=== PATIENT | female | born 1970 | race Caucasian/White ===

== ENCOUNTER → 2020-07-18 15:31 | Outpatient (CLI) | payer BC, SELFPAY ==
--- NOTE | ~2020-07-18 | US_ITS ---
EXAMINATION: US venous doppler LE EXAM DATE: 07/18/2020 16:32 INDICATION: Bilateral lower extremity edema. Left leg bruising, spasm. TECHNIQUE: Multiple grayscale, color flow and Doppler images of the lower extremity deep venous syste ms bilaterally were obtained and reviewed. There is no prior study for comparison. FINDINGS: Scanning at the left medial lower leg symptomatic region demonstrated no abnormality within the subcutaneous fat or musculature. Right side: The right common femoral, femoral and profunda veins demonstrate normal color flow, respi ratory variation, augmentation and compressibility. Compressibility, color flow confirmed within the right popliteal, posterior tibial, peroneal, and greater saphenous veins. Left side: The left common femoral, femoral and profunda veins demonstrate normal color flow, respira tory variation, augmentation and compressibility. Compressibility, color flow confirmed within the l eft popliteal, posterior tibial, peroneal, and greater saphenous veins. IMPRESSION: 1. No lower extremity deep venous thrombosis bilaterally. Reviewed, dictated and finalized at location A. [employer]
== END ==
PROVIDERS: PCP Chiropractor; Visit Provider Chiropractor
DX: R60.9 Edema, unspecified (principal)
CPT/HCPCS: 93970

== ENCOUNTER → 2021-12-06 14:43 | Outpatient (CLI) | payer BC, SELFPAY ==
--- NOTE | ~2021-12-06 | XR_ITS ---
EXAMINATION: XR toe 1st RT min 2V DATE: 12/06/2021 15:06 INDICATION: Right great toe pain TECHNIQUE: Dorsal plantar, lateral and 2 oblique views of the right great toe were obtained. COMPARISON: None FINDINGS: Bone alignment is normal. No fracture. Mild to moderate osteoarthritis at the first metatarsophalange al joint. Mild osteoarthritis at the tarsal metatarsal and second distal and third proximal interphal angeal joints. Moderate-sized plantar calcaneal spur. Soft tissues are unremarkable. IMPRESSION: Polyarticular osteoarthritis, mild to moderate the first metatarsophalangeal joint and mild at a few tarsometatarsal and interphalangeal joints. Reviewed, dictated and finalized at location B. IMPRESSION: Polyarticular osteoarthritis, mild to moderate the first metatarsophalangeal abel int and mild at a few tarsometatarsal and interphalangeal joints.
== END ==
PROVIDERS: PCP Family Medicine; Visit Provider Family Medicine
DX: M79.674 Pain in right toe(s) (principal); M19.071 Primary osteoarthritis, right ankle and foot
CPT/HCPCS: 73660

== ENCOUNTER 2021-12-27 01:03 | Day surgery (SDC) | payer BC, SELFPAY ==
[2021-11-21 10:14] VITALS: BMI 45.3
--- NOTE | 2021-11-25 10:32 | SUR.PREOP ---
Patient called and told me that she did not take her colon prep the way the instructions are written. Spoke with Dr Tsai about how she took her prep and he wanted her rescheduled. Called patient and informed her and then I forwarded her call to the office to get rescheduled.
--- NOTE | 2021-12-19 13:06 | PC.NURSE ---
Edwige was rescheduled from her procedures on 11/25/21. Pre op phone call completed on 11/21/21. No changes to medical history, medications, or allergies since this date. Reviewed 2 day prep instructions and went over new arrival times for procedure on 12/27/21. Patient verbalizes understanding.
[2021-12-27 09:06] VITALS: BP 158/86; PULSE 77; RESP 18; TEMP 36.2; O2SAT 98
--- NOTE | 2021-12-27 09:14 | WPDANESEPPF ---
Anes - Initial Pre Proc Eval Procedure: Operation Date: 12/27/21 10:00 Proposed Procedures p Esophagogastroduodenoscopy & Colonoscopy - Carlin Tsai MD Date/Time: 12/27/21 09:14 Surgeon: Carlin Tsai MD Pre Op Diagnosis: GERD, IBS Patient Data Age: 51 Gender: F Height: 1.63 m Weight: 120 kg Allergies Allergy/AdvReac Type Severity Reaction Status Date / Time bee venom protein (honey bee) Allergy Severe Swelling Verified 12/27/21 09:05 [bees] cefixime [From Suprax] Allergy Severe Anaphylactic Verified 12/27/21 09:05 Shock pepper (genus Capsicum) Allergy Severe Anaphylactic Verified 12/27/21 09:05 Shock spironolactone Allergy Severe Other Verified 12/27/21 09:05 Sulfa (Sulfonamide Allergy Severe Anaphylactic Verified 12/27/21 09:05 Antibiotics) Shock clopidogrel [From Plavix] Allergy Intermediate Other Verified 12/27/21 09:05 nylon Allergy Intermediate Rash Verified 12/27/21 09:05 soap Allergy Intermediate Rash Verified 12/27/21 09:05 bacitracin Allergy Mild Hives Verified 12/27/21 09:05 clindamycin Allergy Mild Hives Verified 12/27/21 09:05 gramicidin D Allergy Mild Hives Verified 12/27/21 09:05 neomycin Allergy Mild Hives Verified 12/27/21 09:05 polymyxin B Allergy Mild Hives Verified 12/27/21 09:05 loratadine [From Claritin] AdvReac Severe Anxiety Verified 12/27/21 09:05 pseudoephedrine AdvReac Severe Anxiety Verified 12/27/21 09:05 [From Sudafed] BACITRACIN ZINC Allergy Mild Hives Uncoded 12/27/21 09:05 NEOMYCIN SULFATE Allergy Mild Hives Uncoded 12/27/21 09:05 POLYMYXIN B SULFATE Allergy Mild Hives Uncoded 12/27/21 09:05 Home Medications Medication Instructions Recorded Confirmed Type amlodipine 5 mg tablet 5 mg PO QPM 06/24/21 11/21/21 History atorvastatin 20 mg tablet 20 mg PO QPM 06/24/21 11/21/21 History lansoprazole 30 mg capsule,delayed 30 mg PO BID #60 cap 06/24/21 11/21/21 Rx release metoprolol succinate 50 mg 50 mg PO BID 06/24/21 11/21/21 History tablet,extended release 24 hr naproxen 500 mg tablet,delayed 500 mg PO DAILY PRN tablet 06/24/21 11/21/21 History release sucralfate 1 gram tablet 1 g PO DAILY tablet 06/24/21 11/21/21 History B-complex with vitamin C [Super B 1 tablet PO DAILY 11/21/21 11/21/21 History Complex + C] Calcium Magnesium + D 1 cap PO DAILY 11/21/21 11/21/21 History Complete Multi 50+ 1 cap PO DAILY 11/21/21 11/21/21 History Vitamin B-12 3,000 mg PO 3XW 11/21/21 11/21/21 History Vitex-C-12 1 cap PO DAILY 11/21/21 11/21/21 History ascorbate calcium-bioflavonoid 1 tablet PO DAILY 11/21/21 11/21/21 History [Trupti-C] calcium polycarbophil [FiberCon] 1,250 mg PO BID 11/21/21 11/21/21 History cholecalciferol (vitamin D3) 125 mcg PO DAILY 11/21/21 11/21/21 History [Vitamin D3] diazepam 10 mg PO ONCE PRN 11/21/21 11/21/21 History diphenhydramine HCl [Benadryl 50 mg PO HS 11/21/21 11/21/21 History Allergy] docusate sodium 100 mg PO QPM 11/21/21 11/21/21 History progesterone micronized 400 mg PO QPM 11/21/21 11/21/21 History pyridoxine (vitamin B6) 100 mg PO DAILY 11/21/21 11/21/21 History thyroid (pork) [ADMINISTRATION CLERK Thyroid] 15 mg PO DAILY 11/21/21 11/21/21 History thyroid (pork) [ADMINISTRATION CLERK Thyroid] 120 mg PO DAILY 11/21/21 11/21/21 History vitamin E 400 unit PO DAILY 11/21/21 11/21/21 History peg 3350-electrolytes 236 240 ml PO Q10M #4000 ml 11/25/21 Rx gram-22.74 gram-6.74 gram-5.86 gram solution Patient hx anesthesia problems: none Family hx anesthesia problems: none Results Review: All pre-operative results and documents have been reviewed as part of the pre-operative evaluation. PMFSH Past Medical History Medical History Allergies Anemia Anxiety IBS (irritable bowel syndrome) Thyroid disorder Social History Social History (Updated 06/21/21 @ 09:45 by Daria Recio CMA) Smoking packs per day: 2 Smoking cigarettes per day: 40.0 Years smoked: 6.5 Smoking pac
[2021-12-27] MEDS: LACTATED RINGERS 1,000 ML 150 ML IV CONT (09:35)
--- NOTE | 2021-12-27 09:49 | WPDGICN ---
Assessment and Plan Assessment and plan (1) Gastroesophageal reflux disease: Code(s): K21.9 - Gastro-esophageal reflux disease without esophagitis Status: Acute Assessment and Plan: Patient with ongoing GE reflux disease. Plan is for EGD to assess more thoroughly. Anti-reflux measures are encouraged. Continued use of lansoprazole 30mg p.o. b.i.d.. Further recommendations may be given after endoscopy. (2) Morbid obesity: Code(s): E66.01 - Morbid (severe) obesity due to excess calories Status: Acute Assessment and Plan: Increase activity and calorie restriction or encouraged to encourage weight loss. (3) Encounter for screening colonoscopy: Code(s): Z12.11 - Encounter for screening for malignant neoplasm of colon Status: Acute Assessment and Plan: Patient presents for screening colonoscopy she has never had previous exam. High-fiber diet is advised for what appears to be irritable bowel syndrome. GI Consult Note Consult date/time: 12/27/21 09:49 HPI: Edwige Rodriguez is a 51 year old female Presents for colonoscopy and EGD. Patient desires neoplasia screening. She is apparent irritable bowel sound with diarrhea alternating with constipation. She denies any bleeding. Her family history is noncontributory for this reason she presents for screening colonoscopy. She has never previously had a colonoscopy. Patient also has GE reflux disease with occasional heartburn. Currently takes lansoprazole 30mg p.o. b.i.d. supplemented with sucralfate once a day that typically controls her heartburn but she takes these medications inconsistently. She presents today for EGD because of ongoing dyspepsia acid indigestion and reflux. Patient denies any bleeding. She has had no difficulty swallowing. Family history noncontributory. Review of Systems Review of Systems: All systems reviewed & are unremarkable except as noted in HPI and below PMFSH Past Medical History Medical History Allergies Anemia Anxiety IBS (irritable bowel syndrome) Thyroid disorder Social History Social History (Updated 06/21/21 @ 09:45 by Daria Recio CMA) Smoking packs per day: 2 Smoking cigarettes per day: 40.0 Years smoked: 6.5 Smoking pack-years: 13.00 Smoking status: Former smoker Tobacco type: cigarettes Alcohol intake: current Alcohol use details: social Substance use: never Substance use type: does not use Living arrangements: with family Spiritual care concerns: No Meds Home Medications and Allergies Home Medications Medication Instructions Recorded Confirmed Type amlodipine 5 mg tablet 5 mg PO QPM 06/24/21 12/27/21 History atorvastatin 20 mg tablet 20 mg PO QPM 06/24/21 12/27/21 History lansoprazole 30 mg capsule,delayed 30 mg PO BID #60 cap 06/24/21 12/27/21 Rx release metoprolol succinate 50 mg 50 mg PO BID 06/24/21 12/27/21 History tablet,extended release 24 hr naproxen 500 mg tablet,delayed 500 mg PO DAILY PRN tablet 06/24/21 12/27/21 History release sucralfate 1 gram tablet 1 g PO DAILY tablet 06/24/21 12/27/21 History B-complex with vitamin C [Super B 1 tablet PO DAILY 11/21/21 12/27/21 History Complex + C] Calcium Magnesium + D 1 cap PO DAILY 11/21/21 12/27/21 History Complete Multi 50+ 1 cap PO DAILY 11/21/21 12/27/21 History Vitamin B-12 3,000 mg PO 3XW 11/21/21 12/27/21 History Vitex-C-12 1 cap PO DAILY 11/21/21 12/27/21 History ascorbate calcium-bioflavonoid 1 tablet PO DAILY 11/21/21 12/27/21 History [Trupti-C] calcium polycarbophil [FiberCon] 1,250 mg PO BID 11/21/21 12/27/21 History cholecalciferol (vitamin D3) 125 mcg PO DAILY 11/21/21 12/27/21 History [Vitamin D3] diazepam 10 mg PO ONCE PRN 11/21/21 12/27/21 History diphenhydramine HCl [Benadryl 50 mg PO HS 11/21/21 12/27/21 History Allergy] docusate sodium 100 mg PO QPM 11/21/21 12/27/21 H
--- NOTE | 2021-12-27 10:27 | SUR.OPER ---
EGD START: 1003; END: 1008. COLONOSCOPY START: 1015; END: 1026.
[2021-12-27 10:29] VITALS: BP 119/65; PULSE 61; RESP 15; O2SAT 99
[2021-12-27 10:39] VITALS: BP 117/69; PULSE 64; RESP 16; O2SAT 100
[2021-12-27 10:49] VITALS: BP 139/69; PULSE 70; RESP 18; O2SAT 100
== END 2021-12-27 11:03 | disposition home or self-care (01) ==
PROVIDERS: PCP Family Medicine; Visit Provider Internal Medicine Gastroenterology
PROC: 0DJ08ZZ Inspection of Upper Intestinal Tract, Via Natural or Artificial Opening Endoscopic (ICD-10-PCS; CPT 43235; principal; 2021-12-27 10:00)
DX: Z12.11 Encounter for screening for malignant neoplasm of colon (principal); K31.7 Polyp of stomach and duodenum; K64.8 Other hemorrhoids; D64.9 Anemia, unspecified; F41.9 Anxiety disorder, unspecified; K58.9 Irritable bowel syndrome, unspecified; Z87.891 Personal history of nicotine dependence; E07.9 Disorder of thyroid, unspecified; E66.01 Morbid (severe) obesity due to excess calories; Z68.41 Body mass index [BMI] 40.0-44.9, adult
CPT/HCPCS: 45378; 43239; 43251; 87081; 88305; J2001; J2704; J7120